=== PATIENT | female | born 1995 | race Caucasian/White ===

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

== ENCOUNTER 2018-03-19 11:10 | Emergency (ER) | payer SELFPAY, BC ==
[2018-03-19] MEDS: ACETAMINOPHEN TAB 650MG DOSE (2X325MG) PO (12:59)
[2018-03-19] MEDS: ONDANSETRON 4 MG ORAL DISINTEGRATING TAB (Q0162 PER 1MG) PO (12:59)
== END 2018-03-19 13:15 | disposition home or self-care (01) ==
LOC: M ED 11:10
DX: S09.90XA Unspecified injury of head, initial encounter (principal); W22.8XXA Striking against or struck by other objects, initial encounter; Y92.89 Other specified places as the place of occurrence of the external cause; R51 Headache
CPT/HCPCS: Q0162

== ENCOUNTER 2018-05-18 15:58 | Emergency (ER) | payer SELFPAY | END 2018-05-18 17:48 | disposition left against medical advice (07) | LOC: M ED 15:58 | DX: Z53.20 Procedure and treatment not carried out because of patient's decision for unspecified reasons (principal) ==

== ENCOUNTER → 2018-05-18 | Outpatient (REF) | payer SELFPAY | LOC: M LAB REF 19:19 | DX: L01.00 Impetigo, unspecified (principal) | CPT/HCPCS: 87070 ==

== ENCOUNTER 2018-12-08 20:45 | Emergency (ER) | payer OTHER, SELFPAY ==
[~2018-12-08] VITALS: Ht 172.7 cm; Wt 113.6 kg
[~2018-12-08 20:45] MED LIST: BCP PO; ZOFR4TAB14 PO; [UNRECOGNIZED DRUG - REMARK]
[2018-12-08] MEDS ORDERED: ISOVUE-370 76% 100ML VIAL (Q9967) As Ordered ONE (22:05)
--- NOTE | 2018-12-08 22:31 | REP ---
Clinical: Trauma . Comparison: 01/24/2016 . Findings: The ventricles, sulci, and cisterns are normal in position and appearance. Dai-white differentiation is maintained. No acute intracranial hemorrhage, mass/mass effect, pathology or trauma/injury. No evidence for acute infarction. No extra-axial fluid collection. Calvarium is intact. Paranasal sinuses and mastoid air cells are clear. Impression: Normal noncontrast head CT. No evidence for acute intracranial pathology or trauma/injury. Electronically Signed by Sadiq Perez MD 12/08/2018 10:23 P
--- NOTE | 2018-12-08 22:33 | REP ---
Clinical: Trauma. Technique: Axial noncontrast images through the facial bones to include the mandible with coronal and sagittal re-formations. Findings: Minimal periorbital soft tissue swelling. The osseous structures are intact and there is no evidence for fracture or dislocation. Specifically, the bilateral zygomatic arches, nasal bones, and mandible including bilateral temporomandibular joints appear normal and symmetric. The sinuses and mastoid air cells are all well aerated and clear without fluid level to suggest occult trauma. The bilateral orbits including the globes and intraconal contents appear symmetric and normal. Impression: No fracture or dislocation. No evidence for acute pathology or trauma/injury. Electronically Signed by Sadiq Perez MD 12/08/2018 10:25 P
--- NOTE | 2018-12-08 22:35 | REP ---
Clinical: Trauma . Technique: Axial contrast enhanced images from the skull base to the thoracic inlet with coronal and sagittal re-formations using 100 ml Isovue 370 intravenous contrast material. Findings: Normal alignment and lordosis is maintained. Cervical vertebral bodies including transverse processes and spinous processes are intact and there is no evidence for acute fracture / compression injury or subluxation. Spinal canal is patent. Posterior elements are intact. Paravertebral soft tissues are normal. Vascular structures are symmetric and normal. Impression: Normal postcontrast cervical spine CT. No evidence for acute pathology or trauma/injury. Electronically Signed by Sadiq Perez MD 12/08/2018 10:27 P
--- NOTE | 2018-12-08 22:37 | REP ---
Clinical: Trauma. Technique: Axial contrast enhanced images from the thoracic inlet to the upper abdomen with coronal and sagittal re-formations using 100 ml Isovue 370 intravenous contrast material. Findings: Lung cho are well-aerated and clear. No consolidation/contusion, pleural effusion, or pneumothorax. Tracheobronchial tree is patent. No adenopathy. Mediastinum including thoracic aorta, pulmonary vasculature and heart/pericardium are normal. Osseous structures are intact. Upper abdomen with evidence for prior gastric bypass surgery and cholecystectomy. Normal bilateral adrenal glands. Impression: Normal contrast enhanced chest CT. Electronically Signed by Sadiq Perez MD 12/08/2018 10:29 P
--- NOTE | 2018-12-08 22:44 | REP ---
Clinical: Trauma. Technique: AP, lateral, bilateral oblique views right hand . Findings: The osseous structures and joint spaces are intact and normal. There is no evidence for acute fracture or dislocation. Surrounding soft tissues are unremarkable. No subcutaneous emphysema or radiodense foreign body. Impression: Normal right hand series. No acute fracture or dislocation. Electronically Signed by Sadiq Perez MD 12/08/2018 10:36 P
[2018-12-08] MEDS ORDERED: KETOROLAC 30 MG/ML VIAL (J1885) IV ONE (22:45)
--- NOTE | 2018-12-08 22:45 | REP ---
Clinical: Trauma. Technique: AP and lateral views of the right forearm. Findings: No acute fracture or dislocation. Skeletal structures, joint spaces, and surrounding soft tissues are within normal limits. Impression: No acute fracture or dislocation. Electronically Signed by Sadiq Perez MD 12/08/2018 10:37 P
--- NOTE | 2018-12-08 22:46 | REP ---
Clinical: Trauma. Technique: AP, lateral, bilateral oblique views. Findings: The carpal bones, surrounding osseous structures, soft tissues, and joint spaces are normal. There is no evidence for acute fracture or dislocation. No subcutaneous emphysema or radiodense foreign body. Impression: Normal wrist series. No acute fracture or dislocation Electronically Signed by Sadiq Perez MD 12/08/2018 10:38 P
[2018-12-08] MEDS ORDERED: IBUP-1114 PO (23:35)
[2018-12-08 23:55] VITALS: BP 115/64
== END 2018-12-08 23:52 | disposition home or self-care (01) ==
LOC: M ED 20:45
DX: S19.9XXA Unspecified injury of neck, initial encounter (principal); S60.211A Contusion of right wrist, initial encounter; S09.90XA Unspecified injury of head, initial encounter; V80.010A Animal-rider injured by fall from or being thrown from horse in noncollision accident, initial encounter; Y92.79 Other farm location as the place of occurrence of the external cause; Y93.52 Activity, horseback riding; Z88.1 Allergy status to other antibiotic agents; Z88.2 Allergy status to sulfonamides; Z79.3 Long term (current) use of hormonal contraceptives
CPT/HCPCS: 70450; 70486; 71260; 72126; 73090; 73110; 73130; 81025; 96374; 99284; J1885; Q9967

== ENCOUNTER → 2019-05-16 | Outpatient (CLI) | payer OTHER ==
[~2019-05-16] MED LIST changes: +ACET1TAB55 PO; +IBUP-1114 PO; +ONDA4TAB6 PO
--- NOTE | 2019-05-16 13:00 | REP ---
Clinical: Right shoulder pain . Technique: Internal rotation, external rotation, and Y view right shoulder . Findings: No acute fracture or dislocation. The acromioclavicular and glenohumeral joints are intact. No periarticular calcifications or degenerative changes are appreciated. Sub acromial space is normal. Surrounding soft tissues are unremarkable. Impression: Normal right shoulder radiographs. Electronically Signed by Sadiq Perez MD 05/16/2019 12:51 P
== END ==
LOC: M ADAMS 12:43
PROVIDERS: ATTEND Physician Assistant Medical
DX: M25.511 Pain in right shoulder (principal)

== ENCOUNTER 2019-05-17 10:58 | Emergency (ER) | payer OTHER ==
[~2019-05-17] VITALS: Ht 172.7 cm; Wt 125.4 kg
[~2019-05-17 10:58] MED LIST changes: -ACET1TAB55 PO; -ONDA4TAB6 PO
[2019-05-17] MEDS ORDERED: ONDANSETRON 4MG/2ML VIAL (J2405) IV ONE (13:30)
[2019-05-17] MEDS ORDERED: NS 1,000 ML IV ONE (13:30)
[2019-05-17 14:05] LABS: BASO % 0.1 % (0.0-1.0); EOS % 0.1 % (0.0-3.0); HEMATOCRIT 33.9 % (36.0-47.0); HEMOGLOBIN 10.5 g/dl (12.0-15.5); LYMPH # 0.9 10^3/uL (1.5-5.0); LYMPH % 11.9 % (24.0-44.0); MEAN CORPUSCULAR HEMOGLOBIN 23.6 pg (27.0-33.0); MEAN CORPUSCULAR VOLUME 76.4 fl (80.0-96.0); MONO # 0.9 10^3/uL (0.0-0.8); MONO % 11.5 % (0.0-5.0); NEUTROPHILS # 5.8 10^3/uL (1.5-8.5); NEUTROPHILS % 76.3 % (36.0-66.0); PLATELET COUNT, AUTOMATED 215 10^3/uL (150-450); RED BLOOD COUNT 4.44 10^6/uL (4.00-5.40); WHITE BLOOD COUNT 7.6 10^3/uL (4.0-10.0)
[2019-05-17 14:25] LABS: HCG, SERUM QUALITATIVE NEGATIVE (NEGATIVE)
[2019-05-17 14:26] LABS: MONO SCRN NEGATIVE (NEGATIVE)
[2019-05-17] MEDS ORDERED: ACETAMINOPHEN 325 MG TAB PO ONE (14:30)
[2019-05-17 14:38] LABS: ERYTHROCYTE SEDIMENTATION RATE 24 mm/hr (0-20)
[2019-05-17 14:46] LABS: ALBUMIN 3.6 GM/DL (3.2-5.2); ALT/SGPT 13 U/L (12-78); BILIRUBIN,DIRECT 0.2 MG/DL (0.0-0.2); BILIRUBIN,TOTAL 0.6 MG/DL (0.2-1.0); BLOOD UREA NITROGEN 9 MG/DL (7-18); CALCIUM LEVEL 8.6 MG/DL (8.5-10.1); CARBON DIOXIDE LEVEL 26 MEQ/L (21-32); CHLORIDE LEVEL 104 MEQ/L (98-107); CREATININE FOR GFR 0.85 MG/DL (0.55-1.30); GLOMERULAR FILTRATION RATE > 60.0 (>60); GLUCOSE, FASTING 90 MG/DL (70-100); POTASSIUM SERUM 3.6 MEQ/L (3.5-5.1); SODIUM LEVEL 137 MEQ/L (136-145); TOTAL PROTEIN 6.8 GM/DL (6.4-8.2)
[2019-05-17] MEDS ORDERED: KETOROLAC 30 MG/ML VIAL (J1885) IV ONE (18:45)
[2019-05-17 20:35] VITALS: BP 138/73
[2019-05-17] MEDS ORDERED: ONDA4TAB6 PO (20:38)
== END 2019-05-17 20:40 | disposition home or self-care (01) ==
LOC: M ED 10:58
DX: R51 Headache (principal); A04.5 Campylobacter enteritis; Z98.84 Bariatric surgery status; Z88.2 Allergy status to sulfonamides
CPT/HCPCS: 80048; 80076; 81001; 83605; 84703; 85025; 85652; 86140; 86308; 87507; 96374; 96375; 99284; J1885; J2405

== ENCOUNTER 2019-05-20 10:36 | Emergency (ER) | payer OTHER ==
[~2019-05-20] VITALS: Ht 172.7 cm; Wt 124.3 kg
[~2019-05-20 10:36] MED LIST changes: +ONDA4TAB6 PO
[2019-05-20] MEDS ORDERED: ACET1TAB55 PO (10:43)
[2019-05-20] MEDS ORDERED: NS 1,000 ML IV ONE (13:00)
[2019-05-20] MEDS ORDERED: ISOVUE-370 76% 100ML VIAL (Q9967) As Ordered ONE (13:02)
[2019-05-20 13:04] LABS: BASO % 0.5 % (0.0-1.0); EOS # 0.1 10^3/uL (0.0-0.5); EOS % 1.7 % (0.0-3.0); HEMATOCRIT 32.9 % (36.0-47.0); HEMOGLOBIN 10.2 g/dl (12.0-15.5); LYMPH # 1.7 10^3/uL (1.5-5.0); LYMPH % 41.3 % (24.0-44.0); MEAN CORPUSCULAR HEMOGLOBIN 23.8 pg (27.0-33.0); MEAN CORPUSCULAR VOLUME 76.7 fl (80.0-96.0); MONO # 0.4 10^3/uL (0.0-0.8); MONO % 9.7 % (0.0-5.0); NEUTROPHILS # 1.9 10^3/uL (1.5-8.5); NEUTROPHILS % 46.3 % (36.0-66.0); PLATELET COUNT, AUTOMATED 289 10^3/uL (150-450); RED BLOOD COUNT 4.29 10^6/uL (4.00-5.40)
--- NOTE | 2019-05-20 13:18 | REP ---
Chest x-ray: Two views. History: Abdominal pain . Comparison study: May 24, 2014 . Findings: The lungs are well inflated and free of infiltrate. The pleural angles are sharp. The heart size is normal. Pulmonary vasculature is not increased. No significant bony abnormality is seen. Impression: Negative chest x-ray. Electronically Signed by Chandrakant Philip MD 05/20/2019 01:09 P
[2019-05-20 13:45] LABS: ALBUMIN 3.4 GM/DL (3.2-5.2); ALT/SGPT 13 U/L (12-78); BILIRUBIN,DIRECT < 0.1 MG/DL (0.0-0.2); BILIRUBIN,TOTAL 0.2 MG/DL (0.2-1.0); BLOOD UREA NITROGEN 8 MG/DL (7-18); CALCIUM LEVEL 8.7 MG/DL (8.5-10.1); CARBON DIOXIDE LEVEL 24 MEQ/L (21-32); CHLORIDE LEVEL 108 MEQ/L (98-107); CK-MB VALUE MASS < 1.0 NG/ML (<3.6); CPK CREATINE PHOSPHOKINASE 52 U/L (26-192); CREATININE FOR GFR 0.75 MG/DL (0.55-1.30); GLOMERULAR FILTRATION RATE > 60.0 (>60); GLUCOSE, FASTING 88 MG/DL (70-100); LIPASE 413 U/L (73-393); MB/CK RELATIVE INDEX 1.92 (< OR =4); SODIUM LEVEL 141 MEQ/L (136-145); TOTAL PROTEIN 6.6 GM/DL (6.4-8.2); TROPONIN I < 0.02 NG/ML (< 0.10)
[2019-05-20] MEDS: GASTROGRAFIN SOLUTION 30ML PO SCH ×2 (14:29→14:44)
--- NOTE | 2019-05-20 16:06 | REP ---
CT abdomen and pelvis with IV and oral contrast: History: Right lower quadrant periumbilical and epigastric pain. History of gastric bypass. Comparison CT study January 27, 2016. CT contrast dose: 100 ml of intravenous Isovue [address] findings: Preliminary awning spreader view shows clips in right upper quadrant post cholecystectomy. The lung bases are clear. The spleen remains mildly prominent measuring 15.3 cm in greatest diameter. This is mildly enlarged. It is essentially unchanged. No focal hepatic lesion is seen. No adrenal lesion is observed on either side. The pancreas is unremarkable. The gallbladder is surgically absent. The kidneys enhance symmetrically and are morphologically intact. A normal appendix is seen in the right lower quadrant behind the cecum. There is some mural thickening in the cecum and ascending colon extending to the proximal transverse segment consistent with enterocolitis. No colonic or small bowel dilation is seen. There is a tiny sliver of fluid in the cul-de-sac consistent with physiologic fluid. No uterine or ovarian abnormality is seen on either side. No pelvic mass is seen. Impression: No CT evidence of appendicitis. There is mural thickening however, affecting the right colon, hepatic flexure, and proximal transverse colon consistent with enterocolitis. Mild splenic enlargement unchanged. No other significant abnormality. Electronically Signed by Chandrakant Philip MD 05/20/2019 04:12 P
[2019-05-20 17:27] VITALS: BP 115/65
--- NOTE | 2019-05-20 20:36 | ECGEPIP ---
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
--- NOTE | 2019-05-20 20:36 | ECGEPIP ---
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
== END 2019-05-20 17:45 | disposition home or self-care (01) ==
LOC: M ED 10:36
DX: A04.5 Campylobacter enteritis (principal); R74.8 Abnormal levels of other serum enzymes; R16.1 Splenomegaly, not elsewhere classified; D64.9 Anemia, unspecified; I47.1 Supraventricular tachycardia; Z87.19 Personal history of other diseases of the digestive system; Z98.84 Bariatric surgery status; Z88.2 Allergy status to sulfonamides; Z79.3 Long term (current) use of hormonal contraceptives
CPT/HCPCS: 36415; 71046; 74177; 80047; 80048; 80076; 82550; 82553; 83605; 83690; 84702; 85025; 93005; 99284; Q9963; Q9967

== ENCOUNTER 2019-09-21 18:52 | Emergency (ER) | payer OTHER, SELFPAY ==
[~2019-09-21] VITALS: Ht 172.7 cm; Wt 112.1 kg
[~2019-09-21 18:52] MED LIST changes: +ACET1TAB55 PO
[2019-09-21 18:54] VITALS: BP 125/72
[2019-09-21] MEDS ORDERED: POLY2.5S OS (19:51)
[2019-09-21] MEDS ORDERED: POLYTRIM OPTH DROPS 10ML OS SCH (21:00)
== END 2019-09-21 20:08 | disposition home or self-care (01) ==
LOC: M ED 18:52
DX: H10.9 Unspecified conjunctivitis (principal); Z98.84 Bariatric surgery status; Z88.1 Allergy status to other antibiotic agents; Z88.2 Allergy status to sulfonamides

== ENCOUNTER 2019-11-15 06:32 | Emergency (ER) | payer OTHER, SELFPAY ==
[~2019-11-15] VITALS: Ht 172.7 cm; Wt 113.6 kg
[~2019-11-15 06:32] MED LIST changes: +POLY2.5S OS
[2019-11-15 06:33] VITALS: BP 128/65
[2019-11-15 07:40] LABS: BASO % 0.4 % (0.0-1.0); EOS # 0.1 10^3/uL (0.0-0.5); EOS % 1.7 % (0.0-3.0); HEMATOCRIT 33.6 % (36.0-47.0); HEMOGLOBIN 9.9 g/dl (12.0-15.5); LYMPH # 1.7 10^3/uL (1.5-5.0); MEAN CORPUSCULAR HEMOGLOBIN 22.9 pg (27.0-33.0); MEAN CORPUSCULAR HGB CONC 29.5 g/dl (32.0-36.5); MEAN CORPUSCULAR VOLUME 77.8 fl (80.0-96.0); MONO # 0.5 10^3/uL (0.0-0.8); MONO % 10.5 % (0.0-5.0); NEUTROPHILS # 2.3 10^3/uL (1.5-8.5); PLATELET COUNT, AUTOMATED 298 10^3/uL (150-450); RED BLOOD COUNT 4.32 10^6/uL (4.00-5.40); WHITE BLOOD COUNT 4.6 10^3/uL (4.0-10.0)
[2019-11-15] MEDS ORDERED: AUGM875T28 PO (07:42)
== END 2019-11-15 07:48 | disposition home or self-care (01) ==
LOC: M ED 06:32
DX: H65.01 Acute serous otitis media, right ear (principal); H92.01 Otalgia, right ear; D50.9 Iron deficiency anemia, unspecified; Z87.820 Personal history of traumatic brain injury; F41.9 Anxiety disorder, unspecified; F32.9 Major depressive disorder, single episode, unspecified; Z98.84 Bariatric surgery status; Z88.2 Allergy status to sulfonamides